=== PATIENT | male | born 1970 | race Caucasian/White ===

== ENCOUNTER 2016-11-24 11:23 | Emergency (ER) | payer OTHER ==
[~2016-11-24] VITALS: Ht 188 cm; Wt 102.0 kg
[~2016-11-24 11:23] MED LIST: IBUP800T23 PO; ROBA750T3 PO
[2016-11-24 11:25] VITALS: BP 137/78; PULSE 88; RESP 20; TEMP 97; O2SAT 97
[2016-11-24] MEDS ORDERED: IBUP800T23 PO (11:46)
[2016-11-24] MEDS ORDERED: BACT800T5 PO (11:46)
[2016-11-24] MEDS ORDERED: CEPH-460 PO (11:46)
--- NOTE | 2016-11-24 11:47 | PD ---
HPI Chief Complaint: Skin Problem Time Seen by Provider: 11:44 Travel History International Travel<30 days: No Contact w/Intl Traveler<30days: No Traveled to known affect area: No History of Present Illness HPI 46-year-old male presents emergency Department with complaint of an "ulcer" to his left lower extremity that has been there for the last few weeks with slow healing. He is requesting a referral to a vascular doctor. Reports history of vascular surgery to the left lower extremity secondary to varicose veins. He says the area where the wound is is painful. He denies fever, chills, nausea, vomiting. Denies drainage from the wound. Denies diabetes. Denies paresthesias, loss of sensation, decreased range of motion, decreased strength to the affected extremity. Denies leg edema. Denies calf pain. Has been taking ibuprofen and Tylenol with no relief of pain. Pain is worse when he stands a lot while at work. Pain is decreased when he elevates his leg. 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 No known allergies. Has no other medical complaints. No other modifying factors or associated signs and symptoms. PFSH Past Medical History Deep Vein Thrombosis: Yes Past Surgical History Other Surgery: Yes (VASCULAR SURGERY LEFT LEG) Social History Alcohol Use: No Tobacco Use: No Allergies-Medications (Allergen,Severity, Reaction): Coded Allergies: No Known Allergies (Unverified , 11/24/16) Reported Meds & Prescriptions Reported Meds & Active Scripts Active Ibuprofen 800 Mg Tab 800 Mg PO Q6HR PRN Bactrim DS (Sulfamethoxazole-Trimethoprim) 800-160 Mg Tab 1 Tab PO BID 10 Days Keflex (Cephalexin) 500 Mg Cap 500 Mg PO Q6H 10 Days Robaxin-750 (Methocarbamol) 750 Mg Tab 750 Mg PO QID PRN FOR PAIN Ibuprofen 800 Mg Tab 800 Mg PO TID PRN Review of Systems Except as stated in HPI: all other systems reviewed are Neg Physical Exam Narrative GENERAL: Well-nourished, well-developed male patient, in no acute distress SKIN: Warm and dry. Approximately 1-1/2 cm in diameter scabbed area to the left lower medial dawn area; the area is surrounded with a dark ecchymotic, erythemic area that is warm to touch. Patient reports the coloring of the area is normal and unchanged. The area is warm to touch and possibly consistent with cellulitis. HEAD: Atraumatic. Normocephalic. EYES: Pupils equal and round. No scleral icterus. No injection or drainage. ENT: Mucosa pink and moist. Airway patent. NECK: Trachea midline. CARDIOVASCULAR: Regular rate. RESPIRATORY: No accessory muscle use. GASTROINTESTINAL: Rounded. MUSCULOSKELETAL: Left lower extremity supple and non-tense with 2+ pedal pulse and sensory intact without erythema or edema. No reproducible tenderness on palpation to the posterior upper calf. No obvious deformities. No clubbing. No cyanosis. No edema. NEUROLOGICAL: Awake and alert. Oriented 3. No obvious cranial nerve deficits. Motor grossly within normal limits. Normal speech. PSYCHIATRIC: Appropriate mood and affect; insight and judgment normal. Data Data Last Documented VS Vital Signs Date Time Temp Pulse Resp B/P Pulse Ox O2 Delivery O2 Flow Rate FiO2 11/24/16 11:25 97.0 88 20 137/78 97 Room Air MDM Medical Decision Making Medical Screen Exam Complete: Yes Emergency Medical Condition: Yes Medical Record Reviewed: Yes Differential Diagnosis Cellulitis, PVD, abrasion, ulceration Narrative Course 46-year-old male with a scalp wound to the left lower leg that has been there for a few weeks. The area surrounded by an erythemic/ecchymotic area that the patient says his his normal skin color to the area. The areas with warm to touch so we'll treat the patient for possible cellulitis. Keflex, Bactrim, ibuprofen prescribed for home. Instructed patient to follow up with vascular surgeon and primary care. Patient verbalizes understanding and agreement with treatment plan. Patient is medically cleared and stable for discharge. Discussed reasons to return to the emergency department. Instructed patient to follow up with primary care provider. Patient agrees with treatment plan. The patients vital signs are stable and the patient is stable for outpatient follow- up and treatment. Patient discharged home, stable and in no acute distress. Diagnosis Primary Impression: Left leg cellulitis Referrals: Primary Care Physician Patient Instructions: Cellulitis (ED), General Instructions, Varicose Veins (ED ) Departure Forms: Tests/Procedures, Work Release Enter return to work date: Nov 25, 2016 Additional Instructions: Ibuprofen or Tylenol as instructed nothing for pain and inflammation Follow-up with primary care provider Follow-up with vascular Return to the emergency department immediately with worsening of symptoms Med/Other Pt SpecificInfo: Prescription(s) given Scripts Ibuprofen 800 Mg Pat143 Mg PO Q6HR PRN (PAIN) #30 TAB Ref 0 Prov:Anamaria Ceron 11/24/16 Sulfamethoxazole-Trimethoprim (Bactrim DS)800-160 Mg Tab1 Tab PO BID 10 Days Ref 0 Prov:Anamaria Ceron 11/24/16 Cephalexin (Keflex)500 Mg Fve098 Mg PO Q6H 10 Days Ref 0 Prov:Anamaria Ceron 11/24/16 Disposition: 01 DISCHARGE HOME Condition: Stable Anamaria Ceron Nov 24, 2016 11:47
== END 2016-11-24 12:13 | disposition home or self-care (01) ==
LOC: NEPK 11:23
DX: L03.116 Cellulitis of left lower limb (principal); Z86.718 Personal history of other venous thrombosis and embolism
CPT/HCPCS: 99283